=== PATIENT | male | born 1990 ===

== ENCOUNTER → 2016-08-28 | Outpatient (CLI) | payer OTHER ==
[2016-08-28 13:14] VITALS: BP 129/85; PULSE 92; Ht 177.8 cm
== END | disposition home or self-care (01) ==
LOC: C.NEUR 12:42
PROVIDERS: ATTEND Allergy & Immunology Allergy
DX: R53.83 Other fatigue (principal); R40.0 Somnolence; R06.83 Snoring; F98.8 Other specified behavioral and emotional disorders with onset usually occurring in childhood and adolescence

== ENCOUNTER → 2016-11-06 | Outpatient (CLI) | payer OTHER ==
[~2016-11-06] VITALS: Ht 177.8 cm; Wt 74.3 kg
[2016-11-06 12:39] VITALS: BP 127/67; PULSE 75; Ht 177.8 cm; Wt 74.3 kg
== END | disposition home or self-care (01) ==
LOC: C.NEUR 11:55
PROVIDERS: ATTEND Internal Medicine Pulmonary Disease
DX: G47.10 Hypersomnia, unspecified (principal); F98.8 Other specified behavioral and emotional disorders with onset usually occurring in childhood and adolescence; R53.83 Other fatigue